=== PATIENT | female | born 1970 | race Caucasian/White ===

== ENCOUNTER → 2018-11-26 | Outpatient (CLI) | payer OTHER ==
[~2018-11-26] MED LIST: ANUSOL-HC25 MG RC; ATENOLOL50 MG PO; FAMOTIDINE20 MG PO; LISINOPRIL10 MG PO; LOVASTATIN20 MG PO; METFORMIN HCL500 M2 PO; TIZANIDINE HCL4 MG PO
== END ==
LOC: NM 11:40
PROVIDERS: ATTEND Internal Medicine
DX: R07.9 Chest pain, unspecified (principal)
CPT/HCPCS: 78452; 93017; A9502

== ENCOUNTER 2021-03-13 02:47 | Inpatient (IN) | payer SELFPAY ==
[~2021-03-13] VITALS: Ht 160 cm; Wt 77.1 kg
[2021-03-13] VITALS (7 sets, daily range): BP systolic 124–153; BP diastolic 79–95
[2021-03-13] MEDS ORDERED: ACETAMINOPHEN 325 MG TAB PO ONE ×2 (03:45)
[2021-03-13] MEDS ORDERED: ACETAMINOPHEN 325 MG TAB ONE ×2 (03:46→22:08)
[2021-03-13 03:57] LABS: BASOPHILS # (AUTO) 0.1 (0.0-0.1); BASOPHILS % 0.9 % (0.0-1.0); EOSINOPHILS # (AUTO) 0.1 (0.0-0.4); HEMATOCRIT 45.9 % (34.2-44.1); HEMOGLOBIN 15.3 g/dL (12.0-16.0); LYMPHOCYTES # (AUTO) 1.2 (1.0-3.2); LYMPHOCYTES % 21.1 % (18.0-39.1); MEAN CORPUSCULAR HEMOGLOBIN 29.5 pg (28-32); MEAN CORPUSCULAR HGB CONC 33.3 g/dL (31-35); MEAN CORPUSCULAR VOLUME 88.4 fL (81-99); MONOCYTES # (AUTO) 0.7 (0.2-0.8); MONOCYTES % 12.4 % (4.4-11.3); NEUTROPHILS # (AUTO) 3.5 (2.1-6.9); NEUTROPHILS % 63.1 % (38.7-80.0); PLATELET COUNT 219 x10e3/uL (140-360); RED BLOOD COUNT 5.19 x10e6/uL (3.6-5.1); RED CELL DISTRIBUTION WIDTH 12.7 % (11.7-14.4)
[2021-03-13] MEDS ORDERED: CEFEPIME 1 GM in SODIUM CHLORIDE 0.9% 50ML 50 ML IV ONE (04:00)
[2021-03-13 04:02] LABS: BACTERIA,URINE FEW /HPF; CLARITY,URINE CLEAR (CLEAR); COLOR,URINE YELLOW (YELLOW); EPITHELIAL CELLS,URINE FEW /LPF; KETONES,URINE 2+ (NEGATIVE); LEUKOCYTE ESTERASE ,URINE NEGATIVE (NEGATIVE); NITRITE,URINE NEGATIVE (NEGATIVE); PROTEIN,URINE DIPSTICK 1+ (NEGATIVE); RBC,URINE 0-5 /HPF (0-5); URINE UROBILINOGEN 0.2 mg/dL (0.2 - 1); WBC,URINE (MAN) 0-5 /HPF (0-5)
[2021-03-13 04:11] LABS: ALANINE AMINOTRANSFERASE 27 IU/L (0-55); ALBUMIN 4.1 g/dL (3.5-5.0); ALKALINE PHOSPHATASE 67 IU/L (40-150); ANION GAP 20.1 mmol/L (8-16); BLOOD UREA NITROGEN 13 mg/dL (7-26); BUN/CREATININE RATIO 16 (6-25); CALCIUM 10.2 mg/dL (8.4-10.2); CARBON DIOXIDE 22 mmol/L (22-29); CHLORIDE 100 mmol/L (98-107); CREATINE KINASE 64 IU/L (29-168); CREATININE, SERUM 0.79 mg/dL (0.57-1.11); EST GLOMERULAR FILTRATION RATE > 60 ML/MIN (60-); GLUCOSE 270 mg/dL (74-118); POTASSIUM 4.1 mmol/L (3.5-5.1); SODIUM 138 mmol/L (136-145)
[2021-03-13] MEDS ORDERED: SODIUM CHLORIDE 0.9% 1000ML 2,000 ML ONE (04:13)
[2021-03-13] MEDS ORDERED: SODIUM CHLORIDE 0.9% 1000ML 1,000 ML IV ONE ×2 (04:15)
[2021-03-13 04:18] LABS: INFLUENZAE A&B ANTIGEN (RAPID) NEGATIVE (NEGATIVE); STREPTOCOCCUS GRP A ANTIGEN NEGATIVE (NEGATIVE)
[2021-03-13] MEDS ORDERED: IOPAMIDOL 370 MG/ML 200 ML INFUS..BTL INJ ONE (05:18)
[2021-03-13] MEDS ORDERED: SODIUM CHLORIDE 0.9% 50ML 50 ML ONE (05:18)
[2021-03-13] MEDS ORDERED: VANCOMYCIN 1GM/NS 250 ML 250 ML IV STA (06:44)
[2021-03-13] MEDS ORDERED: ASPIRIN 81 MG CHEW TAB PO ONE (06:45)
[2021-03-13] MEDS: SODIUM CHLORIDE 0.9% 1000ML 1,000 ML IV SCH ×2 (07:25→16:02)
[2021-03-13] MEDS ORDERED: METFORMIN HCL1000 MG PO (14:27)
[2021-03-13] MEDS ORDERED: LISINOPRIL10 MG PO (14:31)
[2021-03-13] MEDS ORDERED: METOCLOPRAM5 MG/5 ML PO (14:44)
[2021-03-13] MEDS ORDERED: GLIMEPIRIDE4 MG PO (14:44)
[2021-03-13] MEDS ORDERED: CYMBALTA60 MG PO (14:44)
[2021-03-13] MEDS ORDERED: ATORVASTATIN CA20 MG PO (14:44)
[2021-03-13] MEDS ORDERED: NOVOLIN N100 UNIT/1 SQ (14:44)
[2021-03-13 15:14] LABS: CREATINE KINASE 76 IU/L (29-168)
[2021-03-13] MEDS: CEFAZOLIN SOD 1 GM/NS 50ML 50 ML IV SCH (21:57)
[2021-03-13] MEDS: ACETAMINOPHEN 325 MG TAB PO PRN (21:59)
[2021-03-14] VITALS (9 sets, daily range): BP systolic 125–159; BP diastolic 71–108
[2021-03-14] MEDS: HYDROCODONE/APAP 10MG-325MG TAB PO PRN ×3 (03:54→20:15)
[2021-03-14] MEDS: SODIUM CHLORIDE 0.9% 1000ML 1,000 ML IV SCH ×2 (03:54→14:24)
[2021-03-14] MEDS: ACETAMINOPHEN 325 MG TAB PO PRN ×3 (03:55→21:04)
[2021-03-14 05:35] LABS: EOSINOPHILS # (AUTO) 0.1 (0.0-0.4); EOSINOPHILS % 2.4 % (0.0-6.0); HEMATOCRIT 38.6 % (34.2-44.1); HEMOGLOBIN 12.6 g/dL (12.0-16.0); LYMPHOCYTES # (AUTO) 1.4 (1.0-3.2); LYMPHOCYTES % 32.7 % (18.0-39.1); MEAN CORPUSCULAR HEMOGLOBIN 29.2 pg (28-32); MEAN CORPUSCULAR HGB CONC 32.6 g/dL (31-35); MEAN CORPUSCULAR VOLUME 89.4 fL (81-99); MONOCYTES # (AUTO) 0.5 (0.2-0.8); NEUTROPHILS # (AUTO) 2.1 (2.1-6.9); NEUTROPHILS % 50.7 % (38.7-80.0); PLATELET COUNT 197 x10e3/uL (140-360); RED BLOOD COUNT 4.32 x10e6/uL (3.6-5.1); RED CELL DISTRIBUTION WIDTH 12.8 % (11.7-14.4)
[2021-03-14 05:52] LABS: ALANINE AMINOTRANSFERASE 22 IU/L (0-55); ALBUMIN 3.4 g/dL (3.5-5.0); ALKALINE PHOSPHATASE 54 IU/L (40-150); ANION GAP 14.9 mmol/L (8-16); BLOOD UREA NITROGEN 8 mg/dL (7-26); BUN/CREATININE RATIO 12 (6-25); CALCIUM 8.8 mg/dL (8.4-10.2); CARBON DIOXIDE 22 mmol/L (22-29); CHLORIDE 106 mmol/L (98-107); CREATININE, SERUM 0.68 mg/dL (0.57-1.11); EST GLOMERULAR FILTRATION RATE > 60 ML/MIN (60-); GLUCOSE 204 mg/dL (74-118); MAGNESIUM 1.5 MG/DL (1.3-2.1); POTASSIUM 3.9 mmol/L (3.5-5.1); SODIUM 139 mmol/L (136-145)
[2021-03-14] MEDS ORDERED: INSULIN LISPRO 100 UNIT/1 ML 3ML VIAL SQ SCH (07:30)
[2021-03-14] MEDS ORDERED: DEXTROSE 50% SYRINGE 50 ML IV PRN (08:00)
[2021-03-14] MEDS: INSULIN LISPRO 100 UNIT/1 ML 3ML VIAL SQ SCH ×4 (08:45→21:00)
[2021-03-14] MEDS: CEFAZOLIN SOD 1 GM/NS 50ML 50 ML IV SCH ×2 (09:06→20:17)
[2021-03-14] MEDS: MORPHINE SULFATE INJ 2 MG/ML SYR IV PRN ×2 (11:09→18:08)
[2021-03-14] MEDS: ONDANSETRON HCL INJ 2MG/ML 2ML 2 MG/ML VIAL IV PRN ×2 (18:10→21:04)
[2021-03-14] MEDS: DULOXETINE HCL 30 MG DELAYED RELEASE PO SCH (20:14)
[2021-03-14] MEDS: ATORVASTATIN 20 MG TAB PO SCH (20:14)
[2021-03-14] MEDS: LISINOPRIL 10 MG TAB PO SCH (20:14)
[2021-03-14] MEDS ORDERED: METFORMIN HCL 500 MG TAB CR PO SCH (21:00)
[2021-03-15] VITALS (7 sets, daily range): BP systolic 128–159; BP diastolic 71–90
[2021-03-15] MEDS: SODIUM CHLORIDE 0.9% 1000ML 1,000 ML IV SCH ×3 (05:11→16:29)
[2021-03-15] MEDS ORDERED: CEFEPIME HCL 1 GM VIAL IV SCH (06:00)
[2021-03-15] MEDS: IBUPROFEN 600 MG TAB PO PRN ×2 (06:35→16:34)
[2021-03-15] MEDS: DIPHENHYDRAMINE HCL 25 MG CAP PO PRN ×3 (06:35→16:34)
[2021-03-15] MEDS: CEFEPIME 1 GM in SODIUM CHLORIDE 0.9% 50ML 50 ML IV SCH ×3 (06:37→21:50)
[2021-03-15] MEDS: INSULIN LISPRO 100 UNIT/1 ML 3ML VIAL SQ SCH ×4 (08:03→20:13)
[2021-03-15] MEDS: MORPHINE SULFATE INJ 2 MG/ML SYR IV PRN (12:06)
[2021-03-15] MEDS: HYDROCODONE/APAP 10MG-325MG TAB PO PRN (19:22)
[2021-03-15] MEDS: ATORVASTATIN 20 MG TAB PO SCH (20:04)
[2021-03-15] MEDS: DULOXETINE HCL 30 MG DELAYED RELEASE PO SCH (20:04)
[2021-03-15] MEDS: LISINOPRIL 10 MG TAB PO SCH (20:13)
[2021-03-15] MEDS: ALBUTEROL/IPRATROPIUM 3 ML NEB NEB SCH (23:55)
[2021-03-16] VITALS (8 sets, daily range): BP systolic 129–157; BP diastolic 69–90
[2021-03-16] MEDS: MORPHINE SULFATE INJ 2 MG/ML SYR IV PRN (01:18)
[2021-03-16] MEDS: SODIUM CHLORIDE 0.9% 1000ML 1,000 ML IV SCH ×2 (04:56→18:01)
[2021-03-16] MEDS: CEFEPIME 1 GM in SODIUM CHLORIDE 0.9% 50ML 50 ML IV SCH ×3 (05:10→21:33)
[2021-03-16 05:42] LABS: BASOPHILS % 0.6 % (0.0-1.0); EOSINOPHILS # (AUTO) 0.3 (0.0-0.4); EOSINOPHILS % 5.5 % (0.0-6.0); HEMATOCRIT 37.8 % (34.2-44.1); HEMOGLOBIN 12.6 g/dL (12.0-16.0); LYMPHOCYTES # (AUTO) 1.8 (1.0-3.2); LYMPHOCYTES % 37.1 % (18.0-39.1); MEAN CORPUSCULAR HEMOGLOBIN 29.2 pg (28-32); MEAN CORPUSCULAR HGB CONC 33.3 g/dL (31-35); MEAN CORPUSCULAR VOLUME 87.7 fL (81-99); MONOCYTES # (AUTO) 0.5 (0.2-0.8); MONOCYTES % 10.4 % (4.4-11.3); NEUTROPHILS # (AUTO) 2.2 (2.1-6.9); NEUTROPHILS % 45.6 % (38.7-80.0); PLATELET COUNT 213 x10e3/uL (140-360); RED BLOOD COUNT 4.31 x10e6/uL (3.6-5.1); RED CELL DISTRIBUTION WIDTH 12.8 % (11.7-14.4)
[2021-03-16] MEDS: KETOROLAC TROMETHAMINE 30 MG/ML VIAL IV PRN (05:58)
[2021-03-16 06:07] LABS: ALANINE AMINOTRANSFERASE 20 IU/L (0-55); ALBUMIN 3.2 g/dL (3.5-5.0); ALKALINE PHOSPHATASE 50 IU/L (40-150); ANION GAP 15.1 mmol/L (8-16); BLOOD UREA NITROGEN 9 mg/dL (7-26); BUN/CREATININE RATIO 14 (6-25); CALCIUM 8.2 mg/dL (8.4-10.2); CARBON DIOXIDE 21 mmol/L (22-29); CHLORIDE 105 mmol/L (98-107); CREATININE, SERUM 0.65 mg/dL (0.57-1.11); EST GLOMERULAR FILTRATION RATE > 60 ML/MIN (60-); GLUCOSE 320 mg/dL (74-118); MAGNESIUM 1.5 MG/DL (1.3-2.1); POTASSIUM 4.1 mmol/L (3.5-5.1); SODIUM 137 mmol/L (136-145)
[2021-03-16 07:23] LABS: EOSINOPHILS % (MANUAL) 4 % (0-7); LYMPHOCYTES % (MANUAL) 38 % (19-48); MONOCYTES % (MANUAL) 10 % (3.4-9.0); MYELOCYTES % (MANUAL) 1 % (0-0); NEUTROPHILS % (MANUAL) 47 % (40-74); RBC MORPHOLOGY COMMENT NORMAL
[2021-03-16 07:24] LABS: PLATELET ESTIMATE ADEQUATE; PLATELET MORPHOLOGY COMMENT NORMAL
[2021-03-16] MEDS: ALBUTEROL/IPRATROPIUM 3 ML NEB NEB SCH ×4 (07:30→19:15)
[2021-03-16] MEDS: INSULIN LISPRO 100 UNIT/1 ML 3ML VIAL SQ SCH ×4 (09:16→21:32)
[2021-03-16] MEDS: ATORVASTATIN 40 MG TAB PO SCH (20:13)
[2021-03-16] MEDS: DULOXETINE HCL 30 MG DELAYED RELEASE PO SCH (20:13)
[2021-03-16] MEDS: LISINOPRIL 20 MG TAB PO SCH (20:14)
[2021-03-17] VITALS (7 sets, daily range): BP systolic 148–165; BP diastolic 89–99
[2021-03-17] MEDS: ALBUTEROL/IPRATROPIUM 3 ML NEB NEB SCH ×5 (03:20→19:25)
[2021-03-17] MEDS: CEFEPIME 1 GM in SODIUM CHLORIDE 0.9% 50ML 50 ML IV SCH ×3 (05:15→21:11)
[2021-03-17] MEDS: ACETAMINOPHEN 325 MG TAB PO PRN (06:38)
[2021-03-17] MEDS: INSULIN LISPRO 100 UNIT/1 ML 3ML VIAL SQ SCH ×4 (07:30→21:28)
[2021-03-17] MEDS: METHYLPREDNISOLONE SOD SUCC 40 MG/ML VIAL 1ML IV SCH ×2 (08:55→20:10)
[2021-03-17] MEDS: DULOXETINE HCL 30 MG DELAYED RELEASE PO SCH (20:10)
[2021-03-17] MEDS: ATORVASTATIN 40 MG TAB PO SCH (20:10)
[2021-03-17] MEDS: LISINOPRIL 20 MG TAB PO SCH (20:11)
[2021-03-18] MEDS: ALBUTEROL/IPRATROPIUM 3 ML NEB NEB SCH ×2 (00:10→04:12)
[2021-03-18 01:23] VITALS: BP 155/95
[2021-03-18] MEDS: ACETAMINOPHEN 325 MG TAB PO PRN (04:08)
[2021-03-18 05:12] VITALS: BP 154/96
[2021-03-18] MEDS: CEFEPIME 1 GM in SODIUM CHLORIDE 0.9% 50ML 50 ML IV SCH (05:19)
[2021-03-18] MEDS: KETOROLAC TROMETHAMINE 30 MG/ML VIAL IV PRN (05:58)
[2021-03-18] MEDS ORDERED: LEVOFLOXACIN250 MG PO ×2 (07:08→07:09)
[2021-03-18] MEDS ORDERED: PREDNISONE10 MG PO (07:11)
[2021-03-18] MEDS ORDERED: PROVENTIL HFA6.7 GM INH (07:14)
== END 2021-03-18 07:32 | disposition home or self-care (01) | DRG 871 ==
LOC: ER 04:43 → ERHOLD 06:48 → MED/SURG2 14:01
PROVIDERS: ADMIT Internal Medicine; ATTEND Internal Medicine
DX: A41.9 Sepsis, unspecified organism (principal); J18.9 Pneumonia, unspecified organism; I10 Essential (primary) hypertension; E11.9 Type 2 diabetes mellitus without complications; F41.9 Anxiety disorder, unspecified; Z20.822 Contact with and (suspected) exposure to COVID-19; E78.00 Pure hypercholesterolemia, unspecified; E66.01 Morbid (severe) obesity due to excess calories; Z68.30 Body mass index [BMI] 30.0-30.9, adult; R51.9 Headache, unspecified; E78.5 Hyperlipidemia, unspecified
CPT/HCPCS: 36415; 70450; 71046; 71260; 74177; 80053; 81001; 82550; 82553; 82948; 83518; 83605; 83735; 84484; 85025; 87040; 87070; 87205; 87400; 93005; 94640; 99284; J0690; J0692; J1885; J2270; J2405; J2920; J3370; J7030; Q9967; U0002